=== PATIENT | female | born 1990 | race Caucasian/White ===

== ENCOUNTER 2016-04-15 15:56 | Emergency (ER) | payer OTHER ==
[2016-04-15 18:34] LABS: RED BLOOD COUNT 4.16 M/UL (4.00-5.10); WHITE BLOOD COUNT 9.4 K/UL (4.5-11.0)
[2016-04-15 18:58] LABS: BUN/CREATININE RATIO 20 (0-10)
== END 2016-04-16 00:21 | disposition home or self-care (01) ==
LOC: ER1 15:56
PROVIDERS: Emergency Medicine
DX: R07.89 Other chest pain (principal); R06.02 Shortness of breath; R00.2 Palpitations; R11.0 Nausea
CPT/HCPCS: 36415; 71010; 80053; 81001; 82550; 82553; 83874; 84484; 84703; 85025; 85379; 93005; 96360; 96361; 99285; J7050; Q9963